=== PATIENT | female | born 1985 | race Two or more races ===

== ENCOUNTER 2017-06-27 00:31 | Emergency (ER) | payer OTHER ==
[~2017-06-27] VITALS: Ht 160 cm; Wt 60.9 kg
[~2017-06-27 00:31] MED LIST: ENDOCET 5-3251 EACH PO; FLINTSTONES GU1 EACH PO; IBUPROFEN800 MG PO; PROAIR HFA8.5 GM IH; TYLENOL REGULA325 MG PO
[2017-06-27] MEDS ORDERED: PERCOCET 5/31 TABLET PO (02:32)
[2017-06-27] MEDS ORDERED: BACTRIM,SEPT1 TABLET PO (02:32)
[2017-06-27] MEDS ORDERED: KEFLEX500 MG PO (02:32)
[2017-06-27 02:47] VITALS: BP 113/69
== END 2017-06-27 02:48 | disposition home or self-care (01) ==
LOC: EME 00:31
PROC: 0H91XZZ Drainage of Face Skin, External Approach (ICD-10-PCS; principal; 2017-06-27)
DX: L02.01 Cutaneous abscess of face (principal)
CPT/HCPCS: 99281; 99283